=== PATIENT | male | born 1950 | race Caucasian/White ===

== ENCOUNTER 2023-05-19 16:41 | Emergency (ER) | payer MEDICARE, BC ==
[~2023-05-19] VITALS: Ht 180.3 cm; Wt 99.8 kg
[2023-05-19] MEDS ORDERED: KETOROLAC TROMETHAMINE INJ 30 MG/ML VIAL ONE (19:24)
[2023-05-19] MEDS ORDERED: IBUP-1955 PO (19:26)
[2023-05-19] MEDS ORDERED: CYCL10TA9 PO (19:26)
[2023-05-19] MEDS ORDERED: KETOROLAC TROMETHAMINE INJ 60 MG/2 ML VIAL IM ONE (19:30)
[2023-05-19 19:35] VITALS: BP 144/106; TEMP 98.7; O2SAT 96
== END 2023-05-19 19:36 | disposition home or self-care (01) ==
LOC: ER 16:52
DX: S16.1XXA Strain of muscle, fascia and tendon at neck level, initial encounter (principal); Z79.899 Other long term (current) drug therapy; V43.62XA Car passenger injured in collision with other type car in traffic accident, initial encounter; Y93.89 Activity, other specified; Y92.89 Other specified places as the place of occurrence of the external cause; Y99.8 Other external cause status
CPT/HCPCS: 99283; 96372; 72050; J1885

== ENCOUNTER 2025-04-14 17:49 | Inpatient (IN) | payer MEDICARE, BC ==
[~2025-04-14] VITALS: Ht 180.3 cm; Wt 81.3 kg
[~2025-04-14 17:49] MED LIST: CYCL10TA9 PO; IBUP-1955 PO
[2025-04-14 18:03] LABS: PLATELET COUNT (AUTO) 208 K/uL (150-450); RED BLOOD CELL COUNT(AUTO) 4.59 MIL/uL (4.5-6.0); RED CELL DISTRIBUTION WIDTH 13.6 % (11.5-15.0); WHITE BLOOD COUNT (AUTO) 7.0 K/uL (4.3-11.0)
[2025-04-14] MEDS ORDERED: ALFU10TA10 PO (18:08)
[2025-04-14] MEDS ORDERED: ATOR40TA PO (18:08)
[2025-04-14] MEDS ORDERED: DUTA0.5C37 PO (18:08)
[2025-04-14] MEDS ORDERED: DORZ1DRO7 EACHEYE (18:08)
[2025-04-14] MEDS ORDERED: MOUNJARO SQ (18:08)
[2025-04-14 18:10] LABS: CALCIUM, SERUM 8.4 mg/dL (8.5-10.1); CREATININE 1.0 mg/dL (0.6-1.3); SODIUM SERUM 139 mmol/L (136-145); UREA NITROGEN, BLOOD 17 mg/dL (7-18)
[2025-04-14 18:18] LABS: INR 1.11 (0.91-1.10)
[2025-04-14] MEDS ORDERED: IOHEXOL-350 100 ML VIAL IV ONE (18:20)
[2025-04-14] MEDS ORDERED: ASPIRIN EC 325 MG TABLET.DR PO ONE (19:11)
[2025-04-14] MEDS: ASPIRIN EC 325 MG TABLET.DR PO ONE (19:15)
[2025-04-14 19:22] VITALS: O2SAT 98
[2025-04-14] MEDS ORDERED: HOME MED MISCELLANEOUS XX SCH (19:30)
[2025-04-14] MEDS: ALPRAZOLAM 0.5 MG TABLET PO ONE (20:00)
[2025-04-14 21:00] VITALS: BP 104/90; TEMP 97.9; O2SAT 97
[2025-04-14] MEDS: ZOLPIDEM TARTRATE 5 MG TABLET PO PRN (21:51)
[2025-04-14] MEDS: ATORVASTATIN 40 MG TABLET PO SCH (21:51)
[2025-04-14] MEDS: DUTASTERIDE (0.5 MG) 0.5 MG CAPSULE PO SCH (21:51)
[2025-04-14] MEDS: ENOXAPARIN SODIUM 40 MG/0.4 ML DISP.SYRIN SQ SCH (21:53)
[2025-04-15] VITALS: BP 106/93; TEMP 98.1; O2SAT 97
[2025-04-15 04:00] VITALS: BP_SYST 120; BP_SYST 126; BP_DIAS 77; BP_DIAS 79; TEMP 97.3; O2SAT 96
[2025-04-15 07:39] LABS: CALCIUM, SERUM 8.3 mg/dL (8.5-10.1); CREATININE 0.9 mg/dL (0.6-1.3); SODIUM SERUM 138.0 mmol/L (136-145); UREA NITROGEN, BLOOD 16.0 mg/dL (7-18)
[2025-04-15 08:00] VITALS: BP 154/72; TEMP 97.5; O2SAT 98
[2025-04-15 08:04] LABS: LDL 61.0 mg/dL (0-99)
[2025-04-15] MEDS: PANTOPRAZOLE 40 MG TABLET.DR PO SCH (08:04)
[2025-04-15] MEDS: TIMOLOL MAL/DORZOLAM HCL OPHTH 10 ML BOTTLE EACHEYE SCH (08:04)
[2025-04-15] MEDS: ASPIRIN 81 MG TAB.CHEW PO SCH (08:04)
[2025-04-15 08:33] LABS: PLATELET COUNT (AUTO) 184 K/uL (150-450); RED BLOOD CELL COUNT(AUTO) 4.55 MIL/uL (4.5-6.0); RED CELL DISTRIBUTION WIDTH 13.8 % (11.5-15.0); WHITE BLOOD COUNT (AUTO) 5.7 K/uL (4.3-11.0)
[2025-04-15 08:47] LABS: INR 1.1 (0.91-1.10)
[2025-04-15] MEDS ORDERED: VALACYCLOVIR HCL 500 MG TABLET PO SCH ×2 (09:00→17:30)
[2025-04-15] MEDS ORDERED: DUTASTERIDE (0.5 MG) 0.5 MG CAPSULE PO SCH (09:00)
[2025-04-15] MEDS: ACETAMINOPHEN 325 MG TABLET PO PRN (10:26)
[2025-04-15] MEDS: ALPRAZOLAM 1 MG TABLET PO ONE (11:35)
[2025-04-15 12:00] VITALS: BP 114/74; TEMP 97.7; O2SAT 99
[2025-04-15] MEDS ORDERED: VALA10002 PO (13:00)
[2025-04-15] MEDS ORDERED: PRED20TA PO (13:00)
[2025-04-15] MEDS ORDERED: PRED5TAB48 PO (13:00)
== END 2025-04-15 16:10 | disposition home or self-care (01) | DRG 74 ==
LOC: ER 17:54 → TELE 20:31
PROVIDERS: ADMIT Nurse Practitioner Acute Care; ATTEND Nurse Practitioner Acute Care
DX: G51.0 Bell's palsy (principal); R29.702 NIHSS score 2; Z20.822 Contact with and (suspected) exposure to COVID-19; I10 Essential (primary) hypertension; Z79.899 Other long term (current) drug therapy; R73.03 Prediabetes; Z98.890 Other specified postprocedural states; N40.0 Benign prostatic hyperplasia without lower urinary tract symptoms; E78.5 Hyperlipidemia, unspecified; H40.9 Unspecified glaucoma; F40.240 Claustrophobia; Y92.009 Unspecified place in unspecified non-institutional (private) residence as the place of occurrence of the external cause; T63.441A Toxic effect of venom of bees, accidental (unintentional), initial encounter
CPT/HCPCS: 36415; 70450-TC; 70496-TC; 70498-TC; 70551-TC; 71045-TC; 80048-TC; 80061-TC; 82962-TC; 84484-TC; 85025-TC; 85730-TC; 87081-TC; 93307-TC; 93880-TC; 97110-TC; 97116-TC; 97530-TC; 97535-TC; G0378; J1650; Q9967